=== PATIENT | male | born 1985 | race Caucasian/White ===

== ENCOUNTER 2023-12-27 19:39 | Emergency (ER) | payer BC, SELFPAY ==
[2023-12-27 19:41] VITALS: BP 160/99; BMI 23.0
--- NOTE | 2023-12-27 20:42 | ED.GENMED ---
History of Present Illness
General
Chief Complaint: Anal/Rectal Problem
Source: patient
Exam Limitations: none
Time Seen by Provider: 12/27/23 20:14
Nursing documentation reviewed up to this point in time: agreed with
Travel History
Have you had any contact with someone who has COVID-19?: No
Do you have any symptoms of coronavirus? Fever > 100 degrees, chills, cough, shortness of breath, sore throat, loss of taste or smell, muscle aches, or headache?: No
History of Present Illness
History of Present Illness:
38-year-old male has had some chronic tailbone pain seen by physicians with no definitive diagnosis also has some rectal bleeding underwent colonoscopy told he had some polyps and internal hemorrhoids, no blood thinners, colonoscopy was recently
through the [facility], earlier today had some black stool and bloody stool, no fevers, no nausea vomiting no blood thinners
Past History
Past History
ED Past Medical History: Other (Chronic tailbone pain, internal hemorrhoids polyps)
ED Past Surgical History: Other (Colonoscopy)
Social History
Tobacco: Non-smoker
Alcohol: None
Drug: None
Living: with family
Employment: Employed
Review of Systems
Review of Systems
All Other Systems: Not applicable
Constitutional: Denies fever or fatigue
EENT: Reports no symptoms
Respiratory: Reports no symptoms
Cardiac: Reports no symptoms
ABD/GI: Reports other (Bloody stools tailbone pain); Denies abdominal pain
: Reports no symptoms
Phy Exam
Physical Exam
Physical Exam:
Physical Exam
General: no apparent distress, not acutely ill
Neck: No jaundice
Heart: s1/s2 regular rate and rhythm, no murmur. equal radial pulses.
Lungs: no acute respiratory distress. clear bilaterally
Abdomen soft nontender external rectal exam small hemorrhoid around 9:00 no abnormality palpated or seen over the tail
Neuro: alert and oriented. no focal neurological deficits
Skin: no rash
Psychiatric: well kept. interactive and cooperative
Extremities: no edema.
Course
Orders/Labs/Results
Orders:
Orders
12/27/23 20:36
CT Abd/pelvis W Iv Cont Urgent
Comment:
Reason For Exam: rectal pain, tailvone bone
12/27/23 21:03
Complete Blood Count/With Diff Urgent
Comprehensive Metabolic Panel Urgent
Abnormal Lab Results
12/27/23
21:03
Monocytes % 10.3 H %
(1.7-9.3)
BUN 31 H mg/dl
(9-20)
Glucose 102 H mg/dl
(70-99)
12/27/23 21:03
12/27/23 21:03
Vital Signs
Initial and Last Documented VS:
Initial Vital Signs
Temp Pulse Resp BP Pulse Ox
98.3 F 96 16 160/99 99
12/27/23 19:41 12/27/23 19:41 12/27/23 19:41 12/27/23 19:41 12/27/23 19:41
Last Documented Vital Signs
Temp Pulse Resp BP Pulse Ox
98.3 F 96 16 160/99 99
12/27/23 19:41 12/27/23 19:41 12/27/23 19:41 12/27/23 19:41 12/27/23 19:41
MDM/Problems Addressed
Differential Diagnosis Includes:
Perirectal abscess nonvisualized pilonidal cyst, chronic pelvic inflammation hemorrhoidal bleeding
MDM/Problems Addressed:
Hemorrhoidal bleeding sacral pain
*Critical Care Note
Total Time (30-74mins, 75-104mins- exclusive of procedures): Not Applicable
Update Note
Update Note:
Update labs noted CT noted patient hemodynamically stable
ED Attending Note
-
Portions of this chart may have been created with voice recognition software.� Occasional wrong word or��sound alike� substitutions may have occurred due to the inherent limitations of voice recognition software.
Discharge Plan
Departure
Patient Disposition: Home (Routine Discharge)
Date of Disposition: 12/27/23
Time of Disposition: 23:09
Patient with high blood pressure during this ER visit?: No
Condition: Good
Discharge Problem:
RB (rectal bleeding)
Instructions: Hemorrhoids (DC), How to Do a Sitz Bath
Prescriptions:
New
hydrocortisone [Anusol-HC] 2.5 % cream with perineal applicator
1 applic [place] DAILY PRN (Reason: Pain) Qty: 30 0RF
Tucks (witch elda) 50 % pads, medicated
1 pad topical DAILY PRN (Reason: skin cleansing) Qty: 100 0RF
No Action
Advil
2 tab PO PRN PRN (Reason: pain)
Tylenol :
2 tab PO PRN PRN (Reason: pain)
Referrals:
NONE,* [Family Provider] -
Interventions
Interventions:
*Risk Screen - Suicide Last Done: 12/27/23 19:41
*Neglect/Abuse Screening Last Done: 12/27/23 19:41
ED- Fall Risk Assessment Last Done: 12/27/23 21:24
*ED COVID-19 Vaccine History Last Done: 12/27/23 19:41
[2023-12-27 21:26] LABS: % Basophils 0.7 % (0-2); % Eosinophils 1.7 % (0-6); % Immature Granulocytes 0.2 % (0-0.5); % Lymphocytes 36.6 % (20.5-51.1); % Monocytes 10.3 % (1.7-9.3); % Neutrophils 50.5 % (42.2-75.2); Absolute Eosinophils 0.1 10^3/uL (0-0.7); Absolute Lymphocytes 2.1 10^3/uL (1.2-3.4); Absolute Monocytes 0.6 10^3/uL (0.1-0.6); Hematocrit 39.1 % (39.0-52.0); Mean Corp Hgb Conc. 35.8 g/dL (33.0-37.0); Mean Corpuscular Hgb 28.9 pg (27.0-31.0); Mean Corpuscular Volume 80.8 fL (80.0-94.0); Mean Platelet Volume 8.4 fL (7.4-10.4); Nucleated Red Blood Cells % 0 % (-); Platelet Count 303 10^3/uL (130-400); Red Blood Cell Count 4.84 10^6/uL (4.70-6.10); Red Cell Dist. Width 12.6 % (11.5-14.5); White Blood Cell Count 5.8 10^3/uL (4.8-10.8)
[2023-12-27 21:41] LABS: ALT (SGPT) 13 U/L (0-50); AST (SGOT) 19 U/L (17-59); Albumin 4.2 g/dl (3.5-5.0); Alkaline Phosphatase 56 U/L (38-126); Blood Urea Nitrogen 31 mg/dl (9-20); Calcium 9.3 mg/dl (8.4-10.2); Carbon Dioxide 25 mmol/L (22-30); Chloride 101 mmol/L (98-107); Estimated Creatinine Clearance > 125 ml/min; Glucose 102 mg/dl (70-99); Potassium 3.9 mmol/L (3.5-5.1); Sodium 136 mmol/L (135-145); Total Bilirubin 0.5 mg/dl (0.2-1.3); Total Protein 6.6 g/dl (6.3-8.2); eGFR > 60.00
[2023-12-27 23:42] VITALS: BP 128/88
== END 2023-12-27 23:35 | disposition home or self-care (01) ==
LOC: EMR 19:39
PROVIDERS: EMERGENCY PHYSICIAN Emergency Medicine
DX: K62.5 Hemorrhage of anus and rectum (principal)
CPT/HCPCS: 99285; 74177; 80053; 85025; Q9967

== ENCOUNTER → 2024-04-22 16:24 | Outpatient (REF) | payer BC, SELFPAY | LOC: HWRAD 16:24 | DX: M89.8X1 Other specified disorders of bone, shoulder (principal) | CPT/HCPCS: 73000 ==

== ENCOUNTER 2024-04-25 19:24 | Emergency (ER) | payer BC, SELFPAY ==
[2024-04-25 19:27] VITALS: BP 153/99
[2024-04-25 19:44] VITALS: BP 137/97
--- NOTE | 2024-04-25 19:50 | ED.GENMED ---
History of Present Illness
General
Chief Complaint: Cardiac Symptoms
Source: patient
Exam Limitations: none
Time Seen by Provider: 04/25/24 19:41
History of Present Illness
History of Present Illness:
This is a 39 year old male that comes in with c/o chest pain. States that for the past 1.5 weeks he has been having chest tightness. States that sometimes it goes into her shoulder and today he felt like this pinching in the left arm. States that he
has felt SOB and tired. States that he has been nauseated. denies any fever, chills, abd pain, vomiting, diarrhea, headache, dizziness, urinary burning.
Past History
Past History
ED Past Medical History: Psychiatric (Anxiety) and Other (Chronic tailbone pain, internal hemorrhoids polyps, )
ED Past Surgical History: Orthopedic (Collar bone surgery)
Social History
Tobacco: Former smoker
Alcohol: Occasional
Drug: Marijuana
Personal: Single
Living: with family
Employment: Employed
Review of Systems
Review of Systems
All Other Systems: ROS reviewed and negative except as documented in HPI and ROS
Constitutional: Reports no symptoms; Denies fever or chills
EENT: Reports no symptoms
Respiratory: Reports trouble breathing; Denies cough
Cardiac: Reports chest pain
ABD/GI: Reports nausea; Denies abdominal pain, vomiting or diarrhea
: Reports no symptoms; Denies dysuria, frequency or urgency
Musculoskeletal: Reports no symptoms
Skin: Reports no symptoms
Neurological: Reports no symptoms; Denies dizzy or headache
Psychiatric: Reports no symptoms
Phy Exam
General Physical Exam
General Presentation: no apparent distress
General age: appears stated age
General Skin: warm and dry
General Habitus: normal
General Mental: alert and anxious
General Hydration: appears well hydrated
ENT Exam
ENT Exam: TM's normal, pharynx normal and neck supple
Eye Exam
Eye Exam: EOMI
Cardiovascular Exam
Cardiovascular Exam: regular rate/rhythm, no edema, no murmur and normal peripheral pulses
Pulmonary Exam
Pulmonary Exam: lungs clear, no respiratory distress, no rales, chest non tender, no crackles, no rhonchi, no wheezing and no cough
Gastrointestinal Exam
Gastrointestinal Exam: normal bowel sounds, non tender, soft, no organomegaly, no pulsatile mass and non distended
Musculoskeletal Exam
Musculoskeletal Exam: full ROM and no edema
Skin Exam
Skin Exam: normal color, warm/dry, no rash and no petechia
Psychiatric Exam
Psychiatric Exam: normal mood/affect
Course
Orders/Labs/Results
Orders:
Orders
04/25/24 19:29
ECG [Electrocardiogram (*1)] Urgent
Reason for Study: Chest Pain
EKG- Treatment ONCE
04/25/24 19:49
Ondansetron Injectable [Zofran] 4 mg IV NOW STA
CR Chest - 2 Views Urgent
Comment:
Reason For Exam: Chest pain, SOB
04/25/24 19:53
Complete Blood Count/With Diff Urgent
Comprehensive Metabolic Panel Urgent
Troponin I Urgent
Abnormal Lab Results
04/25/24
19:53
MCV 79.7 L fL
(80.0-94.0)
Glucose 105 H mg/dl
(70-99)
04/25/24 19:53
04/25/24 19:53
glucose nonfasting. troponin <0.012
Vital Signs
Initial and Last Documented VS:
Initial Vital Signs
Temp Pulse Resp BP Pulse Ox
98.3 F 95 20 153/99 98
04/25/24 19:27 04/25/24 19:27 04/25/24 19:27 04/25/24 19:27 04/25/24 19:27
Last Documented Vital Signs
Temp Pulse Resp BP Pulse Ox
98.3 F 71 15 135/94 95
04/25/24 19:27 04/25/24 20:56 04/25/24 20:56 04/25/24 20:00 04/25/24 20:56
MDM/Problems Addressed
Differential Diagnosis Includes:
Anxiety
MDM/Problems Addressed:
This is a 39 year old male that comes in with c/o chest pain for the past 1.5 weeks. States that he has chest tightness and SOB. Occasionally nauseated.
Will get labs, Chest x-ray, ECG
Back into see patient. Explained that it appears that he has a right lower lobe Pneumonia. Otherwise his blood work is normal. Will place patient on Amoxicilin 1gm TID and Zithromax 500mg first dose and then 25mg for the next 4 days. Patient to
follow up with the family doctor. Return with any concerns.
Chronic conditions affecting care: Psychiatric illness
Acute Exacerbation and/or Progression of Chronic Illness: Psychiatric illness
*Radiology
Radiology exam reviewed: preliminary read by ED provider (Chest- right lower lobe Pneumonia)
*Pulse Oximetry
Patient hypoxic: no
*EKG
Interpreted by ED Provider?: Yes
Heart Rate: 76
Rate: normal
Rhythm: sinus
Happy: right axis deviation
Interval: normal interval
QRS Pattern: normal QRS
Ischemia: no ischemia
*Resident Assistant Cna Interpretation
Rate: normal
Heart Rate: 86
Rhythm: sinus
*Critical Care Note
Total Time (30-74mins, 75-104mins- exclusive of procedures): Not Applicable
ED Attending Note
-
Portions of this chart may have been created with voice recognition software.� Occasional wrong word or��sound alike� substitutions may have occurred due to the inherent limitations of voice recognition software.
Discharge Plan
Departure
Patient Disposition: Home (Routine Discharge)
Date of Disposition: 04/25/24
Time of Disposition: 21:29
Patient with high blood pressure during this ER visit?: Yes
Condition: Good
Covid-19: Not Applicable
Discharge Problem:
Right lower lobe pneumonia
Instructions: Pneumonia, Adult (DC), BLOOD PRESSURE
Prescriptions:
New
azithromycin [Zithromax] 250 mg tablet
250 mg PO DAILY Qty: 4 0RF
amoxicillin 500 mg capsule
1,000 mg PO TID Qty: 57 0RF
No Action
Advil
2 tab PO PRN PRN (Reason: pain)
Tylenol :
2 tab PO PRN PRN (Reason: pain)
hydrocortisone [Anusol-HC] 2.5 % cream with perineal applicator
1 applic [place] DAILY PRN (Reason: Pain) Qty: 30 0RF
Tucks (witch elda) 50 % pads, medicated
1 pad topical DAILY PRN (Reason: skin cleansing) Qty: 100 0RF
Referrals:
Concepcion Reynaga MD, Resident [Family Provider] - Call in 1-3 days for appt
Activity Restrictions/Additional Instructions:
As discussed, your blood work and ECG are normal. There appears to be a developing Pneumonia at the right base. You have been given Oral antibiotics here and prescriptions have been sent to your Pharmacy. Please take as directed until finished.
Follow up with the family doctor for recheck. IF YOU HAVE ANY OTHER CONCERNS PLEASE RETURN TO THE EMERGENCY ROOM.
Interventions
Interventions:
*Risk Screen - Suicide Last Done: 04/25/24 19:27
*General Assessment Last Done: 04/25/24 19:27
*Neglect/Abuse Screening Last Done: 04/25/24 19:27
ED- Pulmonary Assessment Last Done: 04/25/24 20:02
ED- Cardiac Assessment Last Done: 04/25/24 20:02
Discharge Date and Time
Print Language: THAI
[2024-04-25] MEDS: ZOFRAN 4 MG IV (19:56)
[2024-04-25 20:00] VITALS: BP 135/94
[2024-04-25 20:20] LABS: % Basophils 0.3 % (0-2); % Eosinophils 1.6 % (0-6); % Immature Granulocytes 0.2 % (0-0.5); % Lymphocytes 38.4 % (20.5-51.1); % Monocytes 7.5 % (1.7-9.3); Absolute Eosinophils 0.1 10^3/uL (0-0.7); Absolute Lymphocytes 2.4 10^3/uL (1.2-3.4); Absolute Monocytes 0.5 10^3/uL (0.1-0.6); Absolute Neutrophils 3.3 10^3/uL (1.4-6.5); Hemoglobin 15.4 g/dL (13.0-18.0); Mean Corp Hgb Conc. 36.7 g/dL (33.0-37.0); Mean Corpuscular Hgb 29.2 pg (27.0-31.0); Mean Corpuscular Volume 79.7 fL (80.0-94.0); Mean Platelet Volume 8.6 fL (7.4-10.4); Nucleated Red Blood Cells % 0 % (-); Platelet Count 309 10^3/uL (130-400); Red Blood Cell Count 5.27 10^6/uL (4.70-6.10); Red Cell Dist. Width 12.1 % (11.5-14.5); White Blood Cell Count 6.3 10^3/uL (4.8-10.8)
[2024-04-25 20:34] LABS: ALT (SGPT) 14 U/L (0-50); AST (SGOT) 21 U/L (17-59); Albumin 4.6 g/dl (3.5-5.0); Alkaline Phosphatase 61 U/L (38-126); Blood Urea Nitrogen 17 mg/dl (9-20); Calcium 9.7 mg/dl (8.4-10.2); Carbon Dioxide 27 mmol/L (22-30); Glucose 105 mg/dl (70-99); Total Bilirubin 0.8 mg/dl (0.2-1.3); eGFR > 60.00
[2024-04-25 20:46] LABS: Chloride 101 mmol/L (98-107); Potassium 3.9 mmol/L (3.5-5.1); Sodium 137 mmol/L (135-145); Troponin I < 0.012 ng/ml
[2024-04-25 21:00] VITALS: BP 122/81
[2024-04-25] MEDS: ZITHROMAX 500 MG PO (21:46)
[2024-04-25] MEDS: AMOXIL 1000 MG PO (21:46)
== END 2024-04-25 21:52 | disposition home or self-care (01) ==
LOC: EMR 19:24
PROVIDERS: Clinical Nurse Specialist Family Health; EMERGENCY PHYSICIAN Emergency Medicine
DX: J18.9 Pneumonia, unspecified organism (principal); Z87.891 Personal history of nicotine dependence
CPT/HCPCS: 99285; 96374; 71046; 80053; 84484; 85025; 93005

== ENCOUNTER 2024-09-22 11:08 | Emergency (ER) | payer BC, SELFPAY ==
--- NOTE | 2024-09-22 11:24 | ED.GENMED ---
ED Provider Triage
<Kusum Degroot PA-C - Last Filed: 09/22/24 11:29>
-
Patient seen by provider in Triage?: Seen in Triage
Attestation: A medical screening examination has been initiated by a qualified medical provider. Based on the assessment performed at this time, it has been determined that an emergent medical condition may exist and the patient has been informed
that further medical evaluation and possible additional diagnostic testing may be needed.
HPI: 39yoM here with elevated BP. Saw PCP several times without the past week. He purchased a BP cuff for home and has been checking in frequently. BP cuff indicated an irregular heart rhythm. 'Signs of a possible electrical blockage' on his EKG at
his PCP's office today.
GENERAL: Alert , in no apparent distress
EYE: No visual abnormalities.
NECK: Trachea midline
ENT: No visible abnormalities.
LUNGS: No acute respiratory distress
NEUROLOGICAL: Alert and oriented
SKIN: Skin intact. No visible changes.
MUSCULOSKELETAL: Moving extremities normally
PSYCH: Normal and appropriate interaction.
This is a medical evaluation conducted in person to initiate diagnostic evaluation and provide initial therapeutics. Please see further documentation by the treating clinician.
Cardiac labs, TSH, magnesium, and EKG ordered.
History of Present Illness
<Kusmu Degroot PA-C - Last Filed: 09/22/24 11:29>
General
Chief Complaint: Chest Pain
Time Seen by Provider: 09/22/24 12:19
<Cindy Ybarra MD, Resident - Last Filed: 09/22/24 14:39>
History of Present Illness
History of Present Illness:
33-year-old gentleman with past medical history of anxiety presenting to the ED with chest pain. Patient was seen today at the [facility] and was referred to ED for further evaluation of his chest pain. Pt notes he has been having chest pain
for the past few months and has been told is secondary to his anxiety. Describes pain as tightness across both hemithoraces that is sometimes along with a midsternal burning sensation, is not associated with fever, nausea, vomiting, cough. Patient
states pain has been more constant since Saturday. Pain is aggravated after sitting up. No sick contacts or recent travel. Patient was taking medical marijuana previously but stopped taking it a few weeks ago after concerns for high blood pressure.
Notes he is not on any medications for his blood pressure as he was doing lifestyle modifications. Also notes SOB last night after going out for a walk. Pt states he was told to go to the ER because of an abnormal EKG (electrolyte abnormality?).
This am he was notified of a heart rate problem by his cell phone (rate 76). Pt was seen here in April for chest pain secondary to pneumonia.
Past History
<Kusum Degroot PA-C - Last Filed: 09/22/24 11:29>
Past History
ED Past Medical History: Psychiatric (Anxiety) and Other (Chronic tailbone pain, internal hemorrhoids polyps, )
ED Past Surgical History: Orthopedic (Collar bone surgery)
Social History
Tobacco: Former smoker
Alcohol: Occasional
Drug: Marijuana
Personal: Single
Living: with family
Employment: Employed
<Cindy Ybarra MD, Resident - Last Filed: 09/22/24 14:39>
Past History
ED Past Medical History: Other (Chronic tailbone pain, internal hemorrhoids polyps)
ED Past Surgical History: Orthopedic (Left collar bone surgery)
Review of Systems
<Cindy Ybarar MD, Resident - Last Filed: 09/22/24 14:39>
Review of Systems
Constitutional: Reports no symptoms
EENT: Reports no symptoms
Respiratory: Reports no symptoms
Cardiac: Reports chest pain
ABD/GI: Reports no symptoms
: Reports no symptoms
Musculoskeletal: Reports no symptoms
Skin: Reports no symptoms
Neurological: Reports no symptoms
Endocrine: Reports no symptoms
Hematologic/Lymphatic: Reports no symptoms
Psychiatric: Reports no symptoms
Phy Exam
<Cindy Ybarra MD, Resident - Last Filed: 09/22/24 14:39>
Physical Exam
Physical Exam:
GENERAL: Alert, in no apparent distress
EYE: pupils equal and reactive
NECK: Supple, no significant adenopathy.
ENT: o/p clr, mmm.
CARDIAC: Regular rate and rhythm.
LUNGS: Clear breath sounds bilaterally, no acute respiratory distress, no wheezes/rales/rhonchi
ABDOMEN: Soft, without focal tenderness, no r/g, no cvat
NEUROLOGICAL: Alert and oriented, no focal neuro deficits
SKIN: Warm and dry, skin intact.
MUSCULOSKELETAL: No edema, well perfused.
PSYCH: Normal and appropriate interaction.
Scores
<Cindy Ybarra MD, Resident - Last Filed: 09/22/24 14:39>
Heart Score for Chest Pain Patients
STEMI patient?: No
History: Slightly or Non-Suspicious
ECG: Normal
Age: </= 45 years
Risk Factors: No Risk Factors
Troponin: </= Normal Limit
Heart Score for Chest Pain Patients: 0
Heart Score Risk: 2.5% MACE over next 6 weeks
<Moe Esteban MD - Last Filed: 09/22/24 17:22>
Heart Score for Chest Pain Patients
Heart Score for Chest Pain Patients: 0
Heart Score Risk: 2.5% MACE over next 6 weeks
Course
<Kusum Degroot PA-C - Last Filed: 09/22/24 11:29>
Orders/Labs/Results
Orders:
Orders
09/22/24 11:10
EKG [Electrocardiogram (*1)] Urgent
Reason for Study: Chest Pain
EKG- Treatment ONCE
09/22/24 11:36
Complete Blood Count/With Diff Urgent
Comprehensive Metabolic Panel Urgent
Magnesium Urgent
TSH Reflex To Free T4 Urgent
Troponin I Urgent
09/22/24 13:15
CR Chest - 2 Views Urgent
Comment:
Reason For Exam: chest pain
09/22/24 13:45
D-Dimer Urgent
Abnormal Lab Results
09/22/24
11:36
Glucose 100 H mg/dl
(70-99)
Albumin 5.2 H g/dl
(3.5-5.0)
09/22/24 11:36
09/22/24 11:36
Vital Signs
Initial and Last Documented VS:
Initial Vital Signs
Temp Pulse Resp BP Pulse Ox
36.7 C 107 16 137/99 98
09/22/24 11:26 09/22/24 11:26 09/22/24 11:26 09/22/24 11:26 09/22/24 11:26
Last Documented Vital Signs
Temp Pulse Resp BP Pulse Ox
36.7 C 81 15 137/93 99
09/22/24 11:26 09/22/24 14:00 09/22/24 14:00 09/22/24 14:00 09/22/24 14:00
<Cindy Ybarra MD, Resident - Last Filed: 09/22/24 14:39>
Orders/Labs/Results
Orders:
Orders
09/22/24 11:10
EKG [Electrocardiogram (*1)] Urgent
Reason for Study: Chest Pain
EKG- Treatment ONCE
09/22/24 11:36
Complete Blood Count/With Diff Urgent
Comprehensive Metabolic Panel Urgent
Magnesium Urgent
TSH Reflex To Free T4 Urgent
Troponin I Urgent
09/22/24 13:15
CR Chest - 2 Views Urgent
Comment:
Reason For Exam: chest pain
09/22/24 13:45
D-Dimer Urgent
Abnormal Lab Results
09/22/24
11:36
Glucose 100 H mg/dl
(70-99)
Albumin 5.2 H g/dl
(3.5-5.0)
09/22/24 11:36
09/22/24 11:36
Vital Signs
Initial and Last Documented VS:
Initial Vital Signs
Temp Pulse Resp BP Pulse Ox
36.7 C 107 16 137/99 98
09/22/24 11:26 09/22/24 11:26 09/22/24 11:26 09/22/24 11:26 09/22/24 11:26
Last Documented Vital Signs
Temp Pulse Resp BP Pulse Ox
36.7 C 81 15 137/93 99
09/22/24 11:26 09/22/24 14:00 09/22/24 14:00 09/22/24 14:00 09/22/24 14:00
<Moe Esteban MD - Last Filed: 09/22/24 17:22>
Orders/Labs/Results
Orders:
Orders
09/22/24 11:10
EKG [Electrocardiogram (*1)] Urgent
Reason for Study: Chest Pain
EKG- Treatment ONCE
09/22/24 11:36
Complete Blood Count/With Diff Urgent
Comprehensive Metabolic Panel Urgent
Magnesium Urgent
TSH Reflex To Free T4 Urgent
Troponin I Urgent
09/22/24 13:15
CR Chest - 2 Views Urgent
Comment:
Reason For Exam: chest pain
09/22/24 13:45
D-Dimer Urgent
Abnormal Lab Results
09/22/24
11:36
Glucose 100 H mg/dl
(70-99)
Albumin 5.2 H g/dl
(3.5-5.0)
09/22/24 11:36
09/22/24 11:36
Vital Signs
Initial and Last Documented VS:
Initial Vital Signs
Temp Pulse Resp BP Pulse Ox
36.7 C 107 16 137/99 98
09/22/24 11:26 09/22/24 11:26 09/22/24 11:26 09/22/24 11:26 09/22/24 11:26
Last Documented Vital Signs
Temp Pulse Resp BP Pulse Ox
36.7 C 81 15 137/93 99
09/22/24 11:26 09/22/24 14:00 09/22/24 14:00 09/22/24 14:00 09/22/24 14:00
<Cindy Ybarra MD, Resident - Last Filed: 09/22/24 14:39>
MDM/Problems Addressed
Differential Diagnosis Includes:
ACS
Pneumonia
Pneumothorax
PE
Musculoskeletal pain
MDM/Problems Addressed:
- CBC, CMP
- EKG
- Troponin
- Chest x-ray
- D-dimer
<Cindy Ybarra MD, Resident - Last Filed: 09/22/24 14:39>
*Critical Care Note
Total Time (30-74mins, 75-104mins- exclusive of procedures): Not Applicable
ED Attending Note
<Kusum Degroot PA-C - Last Filed: 09/22/24 11:29>
-
Portions of this chart may have been created with voice recognition software.� Occasional wrong word or��sound alike� substitutions may have occurred due to the inherent limitations of voice recognition software.
<Moe Esteban MD - Last Filed: 09/22/24 17:22>
ED Attending Note
Patient seen and examined by attending physician: Yes
I performed a history and physical exam of patient and discussed management with resident, I reviewed resident's note and agree with documented findings and plan of care.: Yes
ED Attending Note:
I have seen and evaluated the patient with a [id number] encounter. I have spoken to the resident and involved in the medical history, the physical exam, medical decision making.
Evaluation and management service: agree unless noted differently below.
Results interpretation: agree unless noted differently below.
Focused HPI: 39-year-old male with a past medical history of hypertension and recently diagnosed hyperlipidemia who presents to the ER for evaluation of chest pain. Patient reports a soreness/burning sensation substernal. He says symptoms have
been intermittent over the past month or so. He says that over the past week he seems to notice symptoms are worse with exertion although this is not consistent. He says that he went to his PCPs office today for evaluation and was told that his
blood pressure and heart rate were elevated and they recommended he be evaluated for his chest pain the ER. He says he has noticed some very mild shortness of breath. No coughing or fever/chills. No swelling or pain in the legs. He does not get
any nausea, vomiting, diaphoresis. He denies any known personal or family history of cardiac issues. He denies smoking cigarettes but does occasionally smoke marijuana. No history of DVT/PE, no recent travel or risk factors.
Physical exam: Awake and alert not in distress. Vital signs were notable for tachycardic on arrival but normal on my assessment. No cardiac rubs gallops or murmurs appreciated. Lungs clear to auscultation bilaterally. Abdomen nontender. No
edema.
Medical Decision Makin-year-old male presents for evaluation of atypical chest pain that does occasionally have an exertional component to it that she describes a burning sensation that is intermittent for the past month but recently he noticed
a few episodes with exertion. Referred by his PCP for assessment. No chest pain here. EKG shows no STEMI, he does have a rightward axis with pulmonary disease pattern and right atrial enlargement. This is apparently new. CBC and CBC were
unremarkable. His D-dimer is negative. His troponin is undetectable. Thyroid studies were unremarkable. Chest x-ray showed no acute disease. At this point low suspicion for emergent pathology but I do think he warrants further evaluation by
cardiology with his new chest pains as well as this abnormal EKG. Will refer [facility] chest pain hotline. In the meantime I advised him to avoid any exertional activities. We spoke in detail about return precautions. He indicated understanding and is
very comfortable with this plan. All questions were answered.
Discharge Plan
Departure
Patient Disposition: Home (Routine Discharge)
Date of Disposition: 09/22/24
Time of Disposition: 14:40
Patient with high blood pressure during this ER visit?: Yes
Condition: Good
Discharge Problem:
Chest pain
Instructions: Chest Pain DCA Follow Up, BLOOD PRESSURE
Prescriptions:
No Action
Advil
2 tab PO PRN PRN (Reason: pain)
Tylenol :
2 tab PO PRN PRN (Reason: pain)
hydrocortisone [Anusol-HC] 2.5 % cream with perineal applicator
1 applic [place] DAILY PRN (Reason: Pain) Qty: 30 0RF
Tucks (witch elda) 50 % pads, medicated
1 pad topical DAILY PRN (Reason: skin cleansing) Qty: 100 0RF
azithromycin [Zithromax] 250 mg tablet
250 mg PO DAILY Qty: 4 0RF
amoxicillin 500 mg capsule
1,000 mg PO TID Qty: 57 0RF
Referrals:
Stevenson Cadet MD [Active] - Call in 1-3 days for appt
Concepcion Reynaga MD, Resident [Family Provider] -
Activity Restrictions/Additional Instructions:
Thank you for visiting the Emergency Department at [facility].
1. Please schedule a follow up appointment as directed. Call first thing tomorrow morning to make an appointment.
2. If indicated, please take your medications as instructed and indicated on discharge paperwork.
3. If any of your symptoms do not improve, or persist, or become more severe within 6-12 hours, please return to the emergency department for further care.
4. Please return to the emergency department if you develop a headache, neck pain/stiffness, fever greater than 100.4F, chest pain, shortness of breath, persistent nausea, vomiting, slurred speech, difficulty walking, numbness/tingling, weakness,
signs of infection or any other symptoms that are worrisome to you.
Please call [phone] if you have any questions.
Interventions
Interventions:
*Risk Screen - Suicide Last Done: 09/22/24 11:26
*General Assessment Last Done: 09/22/24 13:30
*Neglect/Abuse Screening Last Done: 09/22/24 11:26
*ED COVID-19 Vaccine History Last Done: 09/22/24 13:30
*Nursing Disposition Last Done: 09/22/24 15:02
ED- Cardiac Assessment Last Done: 09/22/24 13:30
Discharge Date and Time
Discharge Date/Time: 09/22/24 15:21
Print Language: ALBANIAN
[2024-09-22 11:26] VITALS: BP 137/99
[2024-09-22 11:46] LABS: % Basophils 0.6 % (0-2); % Eosinophils 0.6 % (0-6); % Immature Granulocytes 0.2 % (0-0.5); % Lymphocytes 29.9 % (20.5-51.1); % Neutrophils 60.7 % (42.2-75.2); Absolute Lymphocytes 1.5 10^3/uL (1.2-3.4); Absolute Monocytes 0.4 10^3/uL (0.1-0.6); Hematocrit 48.2 % (39.0-52.0); Hemoglobin 16.6 g/dL (13.0-18.0); Mean Corp Hgb Conc. 34.4 g/dL (33.0-37.0); Mean Corpuscular Hgb 28.4 pg (27.0-31.0); Mean Corpuscular Volume 82.5 fL (80.0-94.0); Mean Platelet Volume 8.4 fL (7.4-10.4); Nucleated Red Blood Cells % 0 % (-); Platelet Count 300 10^3/uL (130-400); Red Blood Cell Count 5.84 10^6/uL (4.70-6.10); Red Cell Dist. Width 12.4 % (11.5-14.5); White Blood Cell Count 4.9 10^3/uL (4.8-10.8)
[2024-09-22 12:02] LABS: ALT (SGPT) 16 U/L (0-50); AST (SGOT) 23 U/L (17-59); Albumin 5.2 g/dl (3.5-5.0); Alkaline Phosphatase 58 U/L (38-126); Blood Urea Nitrogen 12 mg/dl (9-20); Calcium 9.7 mg/dl (8.4-10.2); Carbon Dioxide 28 mmol/L (22-30); Chloride 98 mmol/L (98-107); Glucose 100 mg/dl (70-99); Magnesium 2.3 mg/dl (1.6-2.3); Potassium 4.3 mmol/L (3.5-5.1); Sodium 139 mmol/L (135-145); Total Protein 7.9 g/dl (6.3-8.2); eGFR > 60.00
[2024-09-22 12:14] LABS: Troponin I < 0.012 ng/ml
[2024-09-22 12:32] LABS: TSH Reflex To Free T4 2.39 uIU/ml (0.47-4.68)
[2024-09-22 12:41] VITALS: BP 135/89
[2024-09-22 13:00] VITALS: BP 129/90
[2024-09-22 14:00] VITALS: BP 137/93
[2024-09-22 14:29] LABS: D-Dimer < 0.27 ug/mlFEU (0.00-0.50)
== END 2024-09-22 15:21 | disposition home or self-care (01) ==
LOC: EMR 11:08
PROVIDERS: Physician Assistant; EMERGENCY PHYSICIAN Emergency Medicine
DX: R07.89 Other chest pain (principal); R03.0 Elevated blood-pressure reading, without diagnosis of hypertension; I49.9 Cardiac arrhythmia, unspecified; E78.00 Pure hypercholesterolemia, unspecified; F41.9 Anxiety disorder, unspecified; Z87.19 Personal history of other diseases of the digestive system; Z87.891 Personal history of nicotine dependence
CPT/HCPCS: 99283; 71046; 80053; 83735; 84443; 84484; 85025; 85379; 93005

== ENCOUNTER → 2024-10-22 07:01 | Outpatient (REF) | payer BC, SELFPAY | LOC: HWRCS 07:01 | PROVIDERS: ATTENDING PHYSICIAN Internal Medicine Cardiovascular Disease | DX: R07.89 Other chest pain (principal); R00.2 Palpitations; I10 Essential (primary) hypertension | CPT/HCPCS: 93306 ==

== ENCOUNTER → 2024-10-23 07:04 | Outpatient (REF) | payer BC, SELFPAY | LOC: RCS 07:04 | PROVIDERS: ATTENDING PHYSICIAN Internal Medicine Cardiovascular Disease | DX: R07.89 Other chest pain (principal); R00.2 Palpitations; I10 Essential (primary) hypertension | CPT/HCPCS: 93017 ==

== ENCOUNTER 2024-12-19 09:55 | Emergency (ER) | payer OTHER, SELFPAY ==
[2024-12-19 09:58] VITALS: BP 145/97
--- NOTE | 2024-12-19 10:37 | ED.GENMED ---
Addendum entered and electronically signed by Flo Berrios MD 12/20/24 11:43:
I had asked the patient to return today for recheck. No change significantly. Clearly no worse. Slightly improved. No sign of secondary cellulitis at this time. Continue current management and will recheck tomorrow
Original Note:
History of Present Illness
General
Chief Complaint: Skin Problem
Source: patient
Exam Limitations: none
Time Seen by Provider: 12/19/24 10:28
History of Present Illness
History of Present Illness:
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 Has some numbness to the finger and redness to the tip. Has been seen by urgent care. Has been on cephalexin. Was also using mupirocin. Wound was bandaged until Saturday. He
stopped dressing it Saturday with the erythema. Also has some numbness to the finger.
Past History
Past History
ED Past Medical History: Psychiatric (Anxiety) and Other (Chronic tailbone pain, internal hemorrhoids polyps)
ED Past Surgical History: Orthopedic (Left collar bone surgery)
Social History
Tobacco: Former smoker
Alcohol: Occasional
Drug: Marijuana
Personal: Single
Living: with family
Employment: Employed
Review of Systems
Review of Systems
All Other Systems: Not applicable
Phy Exam
Physical Exam
Physical Exam:
General: Nontoxic appearing in no distress
Skin: Warm and dry, no rash
Neuro: Alert, nontoxic, grossly nonfocal
Psychiatric: Good eye contact and appropriate
Musculoskeletal: Superficial well-healing avulsion to the tuft of the left fourth finger. Well scabbed. No erythema no drainage. There is a very stocking glove distribution erythema at the distal phalanx. Slight softness to this area. However
no warmth no erythema no drainage. Motor or sensory neurovascular intact. Has some subjective numbness.
Course
Vital Signs
Initial and Last Documented VS:
Initial Vital Signs
Temp Pulse Resp BP Pulse Ox
98.4 F 88 16 145/97 100
12/19/24 09:58 12/19/24 09:58 12/19/24 09:58 12/19/24 09:58 12/19/24 09:58
Last Documented Vital Signs
Temp Pulse Resp BP Pulse Ox
98.4 F 88 16 145/97 100
12/19/24 09:58 12/19/24 09:58 12/19/24 09:58 12/19/24 09:58 12/19/24 09:58
MDM/Problems Addressed
Differential Diagnosis Includes:
Clinically this is very stocking glove and consistent with a contact dermatitis either from bandage and/or mupirocin. Highly doubt cellulitis. Good capillary refill and distal warmth and color. Will change to doxycycline for completeness and
recheck tomorrow.
*Critical Care Note
Total Time (30-74mins, 75-104mins- exclusive of procedures): Not Applicable
Update Note
Update Note:
Td 2 years ago
ED Attending Note
-
Portions of this chart may have been created with voice recognition software.� Occasional wrong word or��sound alike� substitutions may have occurred due to the inherent limitations of voice recognition software.
Discharge Plan
Departure
Patient Disposition: Home (Routine Discharge)
Date of Disposition: 12/19/24
Time of Disposition: 10:39
Patient with high blood pressure during this ER visit?: Yes
Discharge Problem:
Contact dermatitis left fourth digit, Healing avulsion left fourth, Paresthesia left fourth digit
Instructions: BLOOD PRESSURE
Prescriptions:
New
doxycycline hyclate 100 mg capsule
100 mg PO BID 7 Days Qty: 14 0RF
No Action
Advil
2 tab PO PRN PRN (Reason: pain)
Tylenol :
2 tab PO PRN PRN (Reason: pain)
hydrocortisone [Anusol-HC] 2.5 % cream with perineal applicator
1 applic [place] DAILY PRN (Reason: Pain) Qty: 30 0RF
Tucks (witch elda) 50 % pads, medicated
1 pad topical DAILY PRN (Reason: skin cleansing) Qty: 100 0RF
azithromycin [Zithromax] 250 mg tablet
250 mg PO DAILY Qty: 4 0RF
amoxicillin 500 mg capsule
1,000 mg PO TID Qty: 57 0RF
Activity Restrictions/Additional Instructions:
Keep the wound clean dry and undressed.
Change antibiotics to doxycycline. The prescription was sent to your pharmacy
Get 1% hydrocortisone cream and place it 2 times per day
I am here tomorrow for recheck from 9 AM to 6 PM. 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
Return sooner with increased redness swelling or any other concerning symptoms
Interventions
Interventions:
*Risk Screen - Suicide Last Done: 12/19/24 09:59
*General Assessment Last Done: 12/19/24 11:08
*Neglect/Abuse Screening Last Done: 12/19/24 09:59
ED- Fall Risk Assessment Last Done: 12/19/24 11:09
*ED COVID-19 Vaccine History Last Done: 12/19/24 11:08
*Nursing Disposition Last Done: 12/19/24 11:09
ED-Skin Assessment Last Done: 12/19/24 11:09
Discharge Date and Time
Discharge Date/Time: 12/19/24 11:10
Print Language: GERMAN
== END 2024-12-19 11:10 | disposition home or self-care (01) ==
LOC: EMR 09:55
PROVIDERS: EMERGENCY PHYSICIAN Emergency Medicine
DX: L25.9 Unspecified contact dermatitis, unspecified cause (principal); R20.0 Anesthesia of skin; F41.9 Anxiety disorder, unspecified; Z87.19 Personal history of other diseases of the digestive system; Z87.891 Personal history of nicotine dependence
CPT/HCPCS: 99282

== ENCOUNTER 2025-08-17 17:29 | Emergency (ER) | payer BC, SELFPAY ==
[2025-08-17 17:32] VITALS: BP 163/109
[2025-08-17 17:54] LABS: Hematocrit 43.3 % (39.0-52.0); Hemoglobin 14.6 g/dL (13.0-18.0); Mean Corp Hgb Conc. 33.7 g/dL (33.0-37.0); Mean Corpuscular Volume 83.4 fL (80.0-94.0); Nucleated Red Blood Cells % 0 % (-); Platelet Count 309 10^3/uL (130-400); Red Cell Dist. Width 12.1 % (11.5-14.5)
[2025-08-17 18:09] LABS: ALT (SGPT) 19 U/L (0-50); AST (SGOT) 21 U/L (17-59); Albumin 4.7 g/dl (3.5-5.0); Alkaline Phosphatase 53 U/L (38-126); Blood Urea Nitrogen 18 mg/dl (9-20); Calcium 9.4 mg/dl (8.4-10.2); Carbon Dioxide 30 mmol/L (22-30); Chloride 95 mmol/L (98-107); Glucose 106 mg/dl (70-99); Lipase 51 U/L (23-300); Potassium 3.7 mmol/L (3.5-5.1); Sodium 132 mmol/L (135-145); Total Protein 7.3 g/dl (6.3-8.2); eGFR > 60.00
[2025-08-17 18:12] LABS: COVID-19 Antigen Negative (Negative)
[2025-08-17 19:35] VITALS: BP 135/88
[2025-08-17 19:54] VITALS: BP 135/88
--- NOTE | 2025-08-17 19:59 | ED.GENMED ---
History of Present Illness
General
Chief Complaint: Abdominal Symptoms
Time Seen by Provider: 08/17/25 19:59
History of Present Illness
History of Present Illness:
FOCUSED PAST MEDICAL HISTORY
- High blood pressure, anxiety
REVIEW OF OLD RECORDS
- I reviewed records, the patient was diagnosed with right lower lobe pneumonia in April of 2024 here in the emergency department
Note:
CHIEF COMPLAINT(S)
Upper abdominal pressure and recent history of vomiting.
HISTORY OF PRESENT ILLNESS
The patient is a 40-year-old male who presented with complaints of upper abdominal pressure. The patient reports that on Saturday morning, he developed a sore throat followed by a headache and experienced significant vomiting throughout the day. The
vomiting episodes continued until late Saturday night. Each episode of vomiting was followed by chills and shivering. There was a decrease in symptoms by the next day, and by yesterday, the patient reported resolution of symptoms. However, earlier
today, he began experiencing a pressure sensation in the upper abdomen, ranging from the belly button upwards.
The patient reported that the pressure has worsened and is noticeable with movement, such as walking. The patient denies any exacerbation of discomfort with sit-up motions. There is no tenderness upon palpation of the abdomen, nor is there pain upon
shaking. The patient has retained both his appendix and gallbladder.
Labs performed today show a normal white blood cell count, normal liver function tests, and negative COVID-19 results. There is a consideration of viral gastroenteritis or potential stomach acid irritation as etiologies.
PAST MEDICAL AND SURGICAL HISTORY
The patient reports a history of pneumonia but denies any prior intestinal surgeries.
EXTERNAL RECORDS REVIEWED
Previous medical records confirm the patients history of pneumonia and absence of intestinal surgery.
PHYSICAL EXAM
General: Alert, no acute distress. Appears fairly comfortable.
Skin: Warm, dry.
Head: Normocephalic, atraumatic.
Neck: Supple, trachea midline.
Eye Ears, nose, mouth, and throat: Oral mucosa moist.
Cardiovascular: Normal peripheral perfusion, No edema.
Respiratory: Respirations are non-labored.
Gastrointestinal: Abdomen nondistended, minimal upper abdominal tenderness, no lower abdominal tenderness no rebound
Back: Normal range of motion, Normal alignment.
Musculoskeletal: Normal range of motion, normal strength.
Neurological: Alert and oriented to person, place, time, and situation, No focal neurological deficit observed.
Psychiatric: Cooperative, appropriate mood & affect.
PROBLEM LIST
Acute Problems:
- Upper abdominal pressure
- Recent history of vomiting and headaches
- Sore throat
PLAN
1. Proceed with a computed tomography (CT) scan of the abdomen to evaluate for any underlying pathology.
2. Administer Famotidine (Pepsid) for potential gastric irritation.
3. Administer ibuprofen for possible inflammation of abdominal muscles.
4. Provide intravenous fluids for hydration support.
DIFFERENTIAL DIAGNOSIS
The Differential Diagnosis includes, in no particular order and is not limited to:
1. Viral gastroenteritis
2. Gastritis
3. Gastric ulcer
4. Gastroesophageal reflux disease (GERD)
5. Peptic ulcer disease
6. Abdominal muscle strain
7. Duodenal ulcer
8. Cholecystitis
9. Pancreatitis
10. Functional dyspepsia
RADIOLOGY
- CT imaging personally reviewed and agree with radiologist interpretation there is no acute abnormality
UPDATE
-SUMMARY OF ENCOUNTER
The patient, a 40-year-old male, presented to the emergency department with upper abdominal pressure and a recent history of vomiting beginning on Saturday. Initial symptoms included a sore throat, headache, and vomiting episodes accompanied by
chills. The vomiting resolved by the next day, but the patient started feeling abdominal pressure from the belly button upwards. The pressure worsened with movement. There were no signs of bowel obstruction, gallbladder infection, severe
inflammation at the stomach, or abnormalities of the pancreas or liver on the CT scan. Labs including white blood cell count and liver function tests were normal. The patient received treatment with ketorolac and famotidine in the emergency
department, with recommendations for dtpv-zar-zqqeqba options such as ibuprofen, famotidine, or omeprazole for acid irritation if necessary.
DISPOSITION
Discharge
ASSESSMENT
The patients symptoms are likely related to viral gastroenteritis or mild gastric irritation.
EMERGENCY TREATMENTS ADMINISTERED
Ketorolac (Toric)
Famotidine (Pepcid)
PLAN
Recommend ahuo-hke-jauvmau motrin (ibuprofen) for managing symptoms, famotidine (Pepcid) for acid irritation, and consider omeprazole for stronger acid treatment as necessary. The patient will be discharged with instructions to follow up as needed
if symptoms persist or worsen.
PATIENT EDUCATION AND COUNSELING
Discussed viqt-ptv-bztdkrj management strategies for gastric irritation and abdominal pressure, including the use of ibuprofen, famotidine, and omeprazole. Explained that symptoms are not likely due to critical conditions based on current
evaluations.
FOLLOW-UP INSTRUCTIONS
Advised to seek follow-up care if symptoms persist or worsen.
MEDICATION RECONCILIATION
Administered ketorolac and famotidine in the emergency department. Recommended iqpm-[id number]-zgwsxlu ibuprofen, famotidine, or omeprazole as needed.
MEDICAL DECISION MAKING
-Complexity of Data Reviewed: Chronic conditions affecting care [history of pneumonia] Viral gastroenteritis, gastritis, gastric ulcer, gastroesophageal reflux disease (GERD), peptic ulcer disease, abdominal muscle strain, duodenal ulcer,
cholecystitis, pancreatitis, functional dyspepsia.
-Data:
Category 1
External record reviewed: Previous medical records confirm the patients history of pneumonia and absence of intestinal surgery.
Category 2
My independent interpretation of abdomen and pelvis CT: No signs of bowel obstruction, obvious gallbladder infection, severe gastric inflammation, or abnormalities in pancreas or liver noted.
-Risk:
Prescription medication was prescribed (rtpo-ozo-[id number] recommendations for ibuprofen, famotidine, omeprazole)
Consideration of Admission/Observation: Escalation of care including admission/observation was considered given the complexity and risk of the patients presenting complaint, exam findings, and/or their underlying comorbidities. However, ultimately I
feel the patient is safe for outpatient management with close follow-up. Reasoning: Work-up reassuring, does not reveal any acute life/organ-threatening processes, patients symptoms are well controlled upon reevaluation, reexamination is reassuring,
vitals are stable, patient agreeable with discharge, reliable for follow-up.
DIAGNOSIS
- Epigastric pain
Past History
Past History
ED Past Medical History: Psychiatric (Anxiety) and Other (Chronic tailbone pain, internal hemorrhoids polyps)
ED Past Surgical History: Orthopedic (Left collar bone surgery)
Social History
Tobacco: Former smoker
Alcohol: Occasional
Drug: Marijuana
Personal: Single
Living: with family
Employment: Employed
Phy Exam
Physical Exam
Physical Exam:
See HPI
Course
Orders/Labs/Results
Orders:
Orders
08/17/25 17:41
COVID-19 Antigen Urgent
Source: Nasal Swab
Complete Blood Count/With Diff Urgent
Comprehensive Metabolic Panel Urgent
Lipase Urgent
Influenza A+B Rapid Molecular Urgent
KRISTAN Source: Nasal Swab
Specimen Description:
08/17/25 20:05
0.9% Sodium Chloride 1000 ml [Nss] 1,000 ml IV BOLUS
Famotidine [Pepcid] 20 mg IV NOW STA
Ketorolac [Toradol] 15 mg IV NOW STA
08/17/25 20:06
CT Abd/pelvis W Iv Cont Urgent
Comment:
Reason For Exam: worsening upper abd pain
Abnormal Lab Results
08/17/25
17:41
Absolute Monos (auto) 0.9 H 10^3/uL
(0.1-0.6)
Monocytes % 11.9 H %
(1.7-9.3)
Sodium 132 L mmol/L
(135-145)
Chloride 95 L mmol/L
(98-107)
Glucose 106 H mg/dl
(70-99)
08/17/25 17:41
08/17/25 17:41
Vital Signs
Initial and Last Documented VS:
Initial Vital Signs
Temp Pulse Resp BP Pulse Ox
36.8 C 95 16 163/109 97
08/17/25 17:32 08/17/25 17:32 08/17/25 17:32 08/17/25 17:32 08/17/25 17:32
Last Documented Vital Signs
Temp Pulse Resp BP Pulse Ox
36.7 C 70 15 121/84 98
08/17/25 19:54 08/17/25 21:03 08/17/25 21:03 08/17/25 21:00 08/17/25 21:01
*Pulse Oximetry
SaO2: 98
Oxygen Mode of Delivery: Room air
Patient hypoxic: no
*Critical Care Note
Total Time (30-74mins, 75-104mins- exclusive of procedures): Not Applicable
ED Attending Note
-
Portions of this chart may have been created with voice recognition software.� Occasional wrong word or��sound alike� substitutions may have occurred due to the inherent limitations of voice recognition software.
Discharge Plan
Departure
Prescriptions:
No Action
Advil
2 tab PO PRN PRN (Reason: pain)
Tylenol :
2 tab PO PRN PRN (Reason: pain)
hydrocortisone [Anusol-HC] 2.5 % cream with perineal applicator
1 applic [place] DAILY PRN (Reason: Pain) Qty: 30 0RF
Tucks (witch elda) 50 % pads, medicated
1 pad topical DAILY PRN (Reason: skin cleansing) Qty: 100 0RF
azithromycin [Zithromax] 250 mg tablet
250 mg PO DAILY Qty: 4 0RF
amoxicillin 500 mg capsule
1,000 mg PO TID Qty: 57 0RF
doxycycline hyclate 100 mg capsule
100 mg PO BID 7 Days Qty: 14 0RF
Referrals:
Concepcion Reynaga MD, Resident [Family Provider, General]
Interventions
Interventions:
*Risk Screen - Suicide Last Done: 08/17/25 17:33
*Neglect/Abuse Screening Last Done: 08/17/25 17:33
*ED- Fall Risk Assessment Last Done: 08/17/25 19:55
*ED COVID-19 Vaccine History Last Done: 08/17/25 19:55
*ED Influenza Vaccine History Last Done: 08/17/25 19:55
AZ-Oqvxqd-Hdoalgqnpr Assessment Last Done: 08/17/25 19:56
Discharge Date and Time
Print Language: PORTUGUESE
[2025-08-17 20:00] VITALS: BP 130/93
[2025-08-17] MEDS: NSS 1000 IV (20:21)
[2025-08-17] MEDS: TORADOL 15 MG IV (20:21)
[2025-08-17] MEDS: PEPCID 20 MG IV (20:21)
[2025-08-17 21:00] VITALS: BP 121/84
[2025-08-17 21:01] VITALS: BMI 21.8
[2025-08-17 22:56] VITALS: BP 124/91
== END 2025-08-17 22:58 | disposition home or self-care (01) ==
LOC: EMR 17:29
PROVIDERS: Student in an Organized Health Care Education/Training Program; EMERGENCY PHYSICIAN Emergency Medicine
DX: R10.13 Epigastric pain (principal); R07.0 Pain in throat; R51.9 Headache, unspecified; R11.2 Nausea with vomiting, unspecified; Z87.01 Personal history of pneumonia (recurrent); Z87.19 Personal history of other diseases of the digestive system; Z87.891 Personal history of nicotine dependence
CPT/HCPCS: 99284; 96374; 96375; 96361; 74177; 80053; 83690; 85025; 87502; 87811; Q9967